=== PATIENT | female | born 1990 | race Caucasian/White ===

== ENCOUNTER 2018-08-06 22:52 | Emergency (ER) | payer SELFPAY ==
[~2018-08-06] VITALS: Ht 160 cm; Wt 117.9 kg
[2018-08-06 22:56] VITALS: BP 146/86
[2018-08-07] MEDS ORDERED: HYDROcodone/APAP 5/325 MG 1 TAB TAB PO ONE (00:10)
[2018-08-07 01:19] VITALS: BP 146/86
== END 2018-08-07 00:43 | disposition home or self-care (01) ==
LOC: MED 22:52
DX: N83.202 Unspecified ovarian cyst, left side (principal); N39.0 Urinary tract infection, site not specified
CPT/HCPCS: 81002; 81025; 99283

== ENCOUNTER 2018-09-13 20:50 | Emergency (ER) | payer SELFPAY ==
[~2018-09-13] VITALS: Ht 160 cm; Wt 126.6 kg
[2018-09-13 21:10] VITALS: BP 159/76
--- NOTE | 2018-09-13 21:12 | NUR ---
to lobby a/w bed, ambulatory, vss ermd noted
--- NOTE | 2018-09-13 21:47 | NUR ---
PT PRESENTS TO ED WITH SUPRAPUBIC PAIN / X2 DAYS. PT DENIES VAGINAL DISCHARGE OR PAIN WITH URINATION. PAIN IS CONSTANT AND UNBARABLE. VSS. POSITIONED IN BED FOR COMFORT. A&OX4. ER MD AWARE. CONTINUE TO MONITOR.
--- NOTE | 2018-09-13 21:47 | NUR ---
PT TAKEN TO BED 6
[2018-09-13] MEDS ORDERED: ONDANSETRON 4 MG/2 ML VIAL IVP ONE (21:55)
[2018-09-13] MEDS ORDERED: NACL 0.9% 1,000 ML IV ONE (21:55)
[2018-09-13] MEDS ORDERED: KETOROLAC 30 MG/ML VIAL IVP ONE (21:55)
[2018-09-13 22:15] LABS: BASOPHILS # (AUTO) 0.1 K/uL (0.00-0.22); BASOPHILS % (AUTO) 0.5 % (0.0-2.0); EOSINOPHILS # (AUTO) 0.1 K/uL (0-0.4); EOSINOPHILS % (AUTO) 0.6 % (0.0-4.0); HEMATOCRIT 40.2 % (36-48); HEMOGLOBIN 12.7 g/dL (12.0-16.0); LYMPHOCYTES # (AUTO) 1.3 K/uL (2.5-16.5); LYMPHOCYTES % (AUTO) 11.9 % (20.5-51.1); MEAN CORPUSCULAR HEMOGLOBIN 25 pg (27-31); MEAN CORPUSCULAR HGB CONC 32 g/dL (33-37); MEAN CORPUSCULAR VOLUME 77.8 fL (80-94); MONOCYTES # (AUTO) 0.5 K/uL (0.8-1.0); MONOCYTES % (AUTO) 4.4 % (1.7-9.3); NEUTROPHILS # (AUTO) 9.2 K/uL (1.8-7.7); NEUTROPHILS % (AUTO) 82.6 % (42.2-75.2); PLATELET COUNT (AUTO) 235 K/uL (140-450); RED BLOOD CELL COUNT(AUTO) 5.17 MIL/uL (4.20-5.40); RED CELL DISTRIBUTION WIDTH 15.5 % (11.6-13.7); WHITE BLOOD COUNT (AUTO) 11.2 K/uL (4.8-10.8)
[2018-09-13 22:25] LABS: CARBON DIOXIDE 25.8 mmol/L (21-32); CREATININE 0.7 mg/dL (0.6-1.3); POTASSIUM 3.8 mmol/L (3.5-5.1)
[2018-09-13 22:31] LABS: ALBUMIN 3.9 g/dL (3.4-5.0); TOTAL BILIRUBIN 0.3 mg/dL (0.0-1.0)
--- NOTE | 2018-09-13 22:33 | NUR ---
Dr. Whitfield evaluating patient at bedside.
[2018-09-14 00:17] VITALS: BP 159/76
--- NOTE | 2018-09-14 00:17 | NUR ---
Patient discharged with v/s stable. Written and verbal after care instructions given and explained. Patient alert, oriented and verbalized understanding of instructions. Ambulatory with steady gait. All questions addressed prior to discharge. ID band removed. Patient advised to follow up with PMD. Rx of Tramadol and Motrin given. Patient educated on indication of medication including possible reaction and side effects. Opportunity to ask questions provided and answered.
== END 2018-09-14 00:17 | disposition home or self-care (01) ==
LOC: MED 20:50
DX: R10.30 Lower abdominal pain, unspecified (principal); R42 Dizziness and giddiness
CPT/HCPCS: 36415; 80053; 81002; 81025; 83690; 85025; 96361; 96374; 96375; 99283; J1885; J2405; J7030

== ENCOUNTER 2018-12-12 15:52 | Emergency (ER) | payer SELFPAY ==
[~2018-12-12] VITALS: Ht 160 cm; Wt 117.9 kg
[2018-12-12 16:21] VITALS: BP 14/101
--- NOTE | 2018-12-12 16:27 | NUR ---
PATIENT PRESENTS TO ED WITH HAS BEEN IN REHAB FOR NORCO ABUSE C/O ANXIETY, UNEASY AROUND OTHER PEOPLE--FLIGHT OF IDEAS PT ADDS SHE HAS TAKEN TEAS . DENIES N/V/D; SKIN IS PINK/WARM/DRY; AAOX4 WITH EVEN AND STEADY GAIT; LUNGS CLEAR BL; HR EVEN AND REGULAR; PT DENIES ANY FEVER, CP, SOB, OR COUGH AT THIS TIME; PATIENT STATES PAIN OF 0/10 AT THIS TIME; VSS; PATIENT POSITIONED FOR COMFORT; HOB ELEVATED; BEDRAILS UP X2; BED DOWN. ER MD MADE AWARE OF PT STATUS.
--- NOTE | 2018-12-12 17:00 | NUR ---
C/O ANXIETY ----ADDS HAS BEEN IN REHAB FOR NORCO ABUSE ADMITS FEELING VERY ANXIOUS AROUND PEOPLE NOW AND "UNEASY FEELING". PT DENIES N/V/D; SKIN IS INTACT, PINK/WARM/DRY; AAOX4, PERRL, WITH EVEN AND STEADY GAIT; LUNGS CLEAR BL, BREATHING UNLABORED; HR EVEN AND REGULAR, BL PERIPHERAL PULSES PRESENT; BS ACTIVE X4, NO TENDERNESS TO PALPATION. PT DENIES ANY FEVER, CP, SOB, OR COUGH AT THIS TIME; PT STATES 0/10 PAIN AT THIS TIME; VSS; PATIENT POSITIONED FOR COMFORT; HOB ELEVATED; BEDRAILS UP X2; BED DOWN.
[2018-12-12 17:21] VITALS: BP 132/99
== END 2018-12-12 17:10 | disposition home or self-care (01) ==
LOC: MED 15:52
DX: F41.9 Anxiety disorder, unspecified (principal)
CPT/HCPCS: 99283

== ENCOUNTER 2019-05-20 15:25 | Emergency (ER) | payer MEDICAID ==
[~2019-05-20] VITALS: Ht 162.6 cm; Wt 119.7 kg
[2019-05-20 15:44] VITALS: BP 132/98
--- NOTE | 2019-05-20 16:00 | NUR ---
RT SIDE TOOTH ACHE X2 WEEKS W/ WELCH AND COUGH. PAIN 03/05. TOOK ADVIL OTC APPROX 3 HOURS AGO. PATIENT STATES SHE HAS BEEN WAITING FOR HER INSURANCE TO GET IN CONTACT WITH HER DENTIST. IS CONCERNED SHE HAS AN INFECTION.
--- NOTE | 2019-05-20 16:45 | NUR ---
DR XAVIER AT BEDSIDE
[2019-05-20 16:58] VITALS: BP 130/95
--- NOTE | 2019-05-20 16:58 | NUR ---
Patient discharged with v/s stable. Written and verbal after care instructions given and explained. Patient alert, oriented and verbalized understanding of instructions. Ambulatory with steady gait. All questions addressed prior to discharge. ID band removed. Patient advised to follow up with [facility]. Rx of IBUPROFEN AND AMOXICILLIN given. Patient educated on indication of medication including possible reaction and side effects. Opportunity to ask questions provided and answered.
== END 2019-05-20 16:58 | disposition home or self-care (01) ==
LOC: MED 15:25
DX: K08.89 Other specified disorders of teeth and supporting structures (principal)
CPT/HCPCS: 99283

== ENCOUNTER 2021-01-01 21:34 | Emergency (ER) | payer MEDICAID ==
[~2021-01-01] VITALS: Ht 160 cm; Wt 132.9 kg
[2021-01-01 21:47] VITALS: BP 149/86
--- NOTE | 2021-01-01 21:47 | NUR ---
TO BED AMBULATORY
--- NOTE | 2021-01-01 21:50 | NUR ---
30 Y/O FEMALE CAME TO THE ED FOR LEFT FLANK PAIN. PT STATES THAT SHE IS LIVING WITH ONLY 1 KIDNEY. PT IS NAUSEOUS, AND HAS VOMITTED X7 TODAY. SKIN IS PINK/WARM/DRY; AAOX4 WITH EVEN AND STEADY GAIT; LUNGS CLEAR BL; HR EVEN AND REGULAR; PT DENIES ANY FEVER, CP, SOB, OR COUGH AT THIS TIME; PATIENT STATES PAIN OF 0/10 AT THIS TIME; VSS; PATIENT POSITIONED FOR COMFORT; HOB ELEVATED; BEDRAILS UP X2; BED DOWN. ER MD MADE AWARE OF PT STATUS. PMH: UTI SURGICAL HX: KIDNEY REMOVAL [facility]
--- NOTE | 2021-01-01 23:13 | NUR ---
DR LIANG AT BEDSIDE EXAMINING PT
[2021-01-01] MEDS ORDERED: MORPHINE SULFATE 2 MG/ML SYR IVP ONE (23:45)
[2021-01-01] MEDS ORDERED: ONDANSETRON 4 MG/2 ML VIAL IVP ONE (23:45)
[2021-01-01] MEDS ORDERED: NACL 0.9% 1,000 ML IV ONE (23:45)
[2021-01-01 23:58] LABS: APPEARANCE,URINE CLEAR (CLEAR); BILIRUBIN,URINE NEGATIVE (NEGATIVE); BLOOD, URINE 2+ (NEGATIVE); COLOR,URINE YELLOW (YELLOW); LEUKOCYTE ESTERASE ,URINE 2+ (NEGATIVE); NITRITE, URINE NEGATIVE (NEGATIVE); UGLUCOSE NEGATIVE (NEGATIVE)
[2021-01-02 00:15] LABS: ALBUMIN 3.1 g/dL (3.4-5.0); ANION GAP 13.1 (8-16); POTASSIUM 4.1 mmol/L (3.5-5.1); TOTAL BILIRUBIN 0.3 mg/dL (0.0-1.0)
--- NOTE | 2021-01-02 00:18 | NUR ---
PT RETURN FROM CT
[2021-01-02 00:23] LABS: BASOPHILS % (AUTO) 0.2 % (0.0-2.0); EOSINOPHILS # (AUTO) 0.1 K/uL (0-0.4); EOSINOPHILS % (AUTO) 0.7 % (0.0-4.0); HEMATOCRIT 35.4 % (36-48); HEMOGLOBIN 11.7 g/dL (12.0-16.0); LYMPHOCYTES # (AUTO) 1.3 K/uL (2.5-16.5); LYMPHOCYTES % (AUTO) 12.3 % (20.5-51.1); MEAN CORPUSCULAR HEMOGLOBIN 28 pg (27-31); MEAN CORPUSCULAR HGB CONC 33 g/dL (33-37); MEAN CORPUSCULAR VOLUME 85.6 fL (80-94); MONOCYTES # (AUTO) 1.3 K/uL (0.8-1.0); NEUTROPHILS # (AUTO) 8.2 K/uL (1.8-7.7); NEUTROPHILS % (AUTO) 74.8 % (42.2-75.2); PLATELET COUNT (AUTO) 166 K/uL (140-450); RED BLOOD CELL COUNT(AUTO) 4.13 MIL/uL (4.20-5.40); RED CELL DISTRIBUTION WIDTH 14.1 % (11.6-13.7); WHITE BLOOD COUNT (AUTO) 10.9 K/uL (4.8-10.8)
[2021-01-02 00:24] LABS: WBC,URINE 20-60 /HPF (0-5)
[2021-01-02 00:25] LABS: URINE AMORPHOUS URATE 1+ /HPF (None Seen)
[2021-01-02] MEDS ORDERED: MORPHINE SULFATE 2 MG/ML SYR IVP ONE ×2 (01:20→02:15)
[2021-01-02] MEDS ORDERED: cefTRIAXone 1,000 MG VIAL ONE (01:37)
[2021-01-02] MEDS ORDERED: ACET-8386 PO (02:05)
--- NOTE | 2021-01-02 02:58 | NUR ---
Patient discharged with v/s stable. Written and verbal after care instructions given and explained. Patient verbalized understanding. Ambulatory with steady gait. All questions addressed prior to discharge. Advised to follow up with PMD.
[2021-01-02 03:03] VITALS: BP 149/86
[2021-01-03] MEDS ORDERED: CYCL-654 PO (11:24)
[2021-01-03] MEDS ORDERED: CYCL5TAB PO (11:35)
--- NOTE | 2021-01-05 19:45 | NUR ---
LATE ENTRY- 0.9% NS BOLUS DISCONTINUED AT 0115 AND ROCEPHIN DISCONTINUED AT 0230
== END 2021-01-02 02:58 | disposition home or self-care (01) ==
LOC: MED 21:34
DX: N10 Acute pyelonephritis (principal); R11.2 Nausea with vomiting, unspecified
CPT/HCPCS: 36415; 74176; 80053; 81001; 81025; 84703; 85025; 87086; 96361; 96365; 96375; 96376; 99284; J0696; J2270; J2405; J7030

== ENCOUNTER 2021-01-03 08:49 | Emergency (ER) | payer MEDICAID ==
[~2021-01-03] VITALS: Ht 165.1 cm; Wt 131.5 kg
[2021-01-03 08:51] VITALS: BP 145/107
--- NOTE | 2021-01-03 08:59 | NUR ---
PT AMBULATED TO BATHROOM, STEADY GAIT.
[2021-01-03] MEDS ORDERED: NACL 0.9% 1,000 ML IV ONE (09:20)
--- NOTE | 2021-01-03 09:21 | NUR ---
30 Y/O F BIB SELF FROM HOME, PATIENT PRESENTS TO ED WITH ABD PAIN AND PAINFUL URINATION THAT STARTED 5 DAYS AGO 12/29/20 . PT STATES SHE HAS HESITENCY AND URGENCY WHEN URINATING, FEELS SHE IS UNABLE TO FULLY EMPTY BLADDER, BURNING SENSATION WITH ABD PAIN 10/10. DENIES N/V/D; SKIN IS PINK/WARM/DRY; AAOX4 WITH EVEN AND STEADY GAIT; LUNGS CLEAR BL; HR EVEN AND REGULAR; PT DENIES ANY CP, SOB, OR COUGH AT THIS TIME; PATIENT STATES PAIN OF 10/10 AT THIS TIME, ONLY DURING URINATION IN ABD AREA; VSS; PATIENT POSITIONED FOR COMFORT; HOB ELEVATED; BEDRAILS UP X2; BED DOWN. ER MD MADE AWARE OF PT STATUS. UPON PALPATION, ABD IS ROUND AND SOFT, NON TENDER IN ALL QUADRANTS. STATES SHE HAS BEEN HAVING FEVERS AND BODY ACHES. PMH: R KIDNEY REMOVAL AT 6 MO, NON FUNCTIONING MEDS: LAST DOSE OF IBUPROFEN (0700 800MG) ALLERGY: NONE
[2021-01-03] MEDS ORDERED: ONDANSETRON 4 MG/2 ML VIAL IVP ONE (09:25)
[2021-01-03] MEDS ORDERED: HYDROcodone/APAP 5/325 MG 1 TAB TAB PO ONE (09:25)
[2021-01-03] MEDS ORDERED: ACETAMINOPHEN EXTRA STRENGTH 500 MG TAB PO ONE (09:25)
--- NOTE | 2021-01-03 09:38 | NUR ---
DAINA PHLEB PICKED UP URINE AND LABS DRAWN THROUGH IV
[2021-01-03 09:41] LABS: HEMATOCRIT 34.6 % (36-48); HEMOGLOBIN 11.4 g/dL (12.0-16.0); MEAN CORPUSCULAR HEMOGLOBIN 28 pg (27-31); MEAN CORPUSCULAR HGB CONC 33 g/dL (33-37); MEAN CORPUSCULAR VOLUME 84.9 fL (80-94); PLATELET COUNT (AUTO) 187 K/uL (140-450); RED BLOOD CELL COUNT(AUTO) 4.08 MIL/uL (4.20-5.40); RED CELL DISTRIBUTION WIDTH 14.2 % (11.6-13.7); WHITE BLOOD COUNT (AUTO) 9.2 K/uL (4.8-10.8)
--- NOTE | 2021-01-03 09:59 | NUR ---
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
[2021-01-03 10:00] LABS: ALBUMIN 2.9 g/dL (3.4-5.0); ANION GAP 13.1 (8-16); CARBON DIOXIDE 23.1 mmol/L (21-32); CREATININE 0.9 mg/dL (0.6-1.3); POTASSIUM 4.2 mmol/L (3.5-5.1); TOTAL BILIRUBIN 0.3 mg/dL (0.0-1.0)
[2021-01-03 10:44] LABS: APPEARANCE,URINE CLEAR (CLEAR); BILIRUBIN,URINE NEGATIVE (NEGATIVE); BLOOD, URINE 2+ (NEGATIVE); COLOR,URINE YELLOW (YELLOW); LEUKOCYTE ESTERASE ,URINE TRACE (NEGATIVE); NITRITE, URINE NEGATIVE (NEGATIVE); UGLUCOSE NEGATIVE (NEGATIVE)
[2021-01-03 10:56] LABS: EOSINOPHILS % (MANUAL) 1 % (0-4); LYMPHOCYTES % (MANUAL) 17 % (20-46); MONOCYTES % (MANUAL) 10 % (5-12)
[2021-01-03 11:04] LABS: RBC,URINE 0-5 /HPF (0-5)
[2021-01-03] MEDS ORDERED: MORPHINE SULFATE 2 MG/ML SYR IVP ONE (11:05)
[2021-01-03] MEDS ORDERED: CYCL-654 PO (11:24)
[2021-01-03] MEDS ORDERED: CYCL5TAB PO (11:35)
[2021-01-03 11:37] VITALS: BP 145/107
--- NOTE | 2021-01-03 11:37 | NUR ---
Patient discharged with v/s stable. Written and verbal after care instructions given and explained. Patient alert, oriented and verbalized understanding of instructions. Ambulatory with steady gait. All questions addressed prior to discharge. ID band removed. Patient advised to follow up with PMD. Rx of FLEXERIL given. Patient educated on indication of medication including possible reaction and side effects. Opportunity to ask questions provided and answered.
== END 2021-01-03 11:37 | disposition home or self-care (01) ==
LOC: MED 08:49
DX: N12 Tubulo-interstitial nephritis, not specified as acute or chronic (principal)
CPT/HCPCS: 36415; 80053; 81001; 81025; 83605; 85025; 87040; 87086; 96361; 96374; 96375; 99284; J2270; J2405; J7030

== ENCOUNTER 2021-08-05 07:53 | Emergency (ER) | payer MEDICAID ==
[~2021-08-05] VITALS: Ht 160 cm; Wt 130.6 kg
[~2021-08-05 07:53] MED LIST: CYCL-654 PO; CYCL5TAB PO
[2021-08-05 07:58] VITALS: BP 150/107
--- NOTE | 2021-08-05 08:00 | NUR ---
Patient ambulated to bed 07 with steady/even gait.
[2021-08-05] MEDS ORDERED: KETOROLAC 60 MG/2 ML VIAL IM ONE (08:10)
--- NOTE | 2021-08-05 08:20 | NUR ---
31/F BIB SELF WITH C/O LOWER ABDOMINAL PAIN RADIATING TO HER LOW BACK SINCE YESTERDAY. STATES HX OF OVARIAN CYSTS WHICH CAUSES BAD MENSTRUAL CRAMPS, STATING THIS MONTH THE PAIN IS WORSE. PT STATES 10/10, CRAMPING/STABBING/CONSTANT, NON-RADIATING PAIN. PT ALSO C/O VOMITING SINCE YESTERDAY "DUE TO PAIN." REPORTS 8 EPISODES OF VOMITING SINCE YESTERDAY "GREEN/LIQUID." STATES DECREASED APPETITE D/T VOMITING. REPORTS ADVIL AT ~0700 TODAY WITHOUT RELIEF TO PAIN. DENIES CP, SOB, FEVER, CHILLS. UA COLLECTED. ABD SOFT/ROUND/TENDER. BED LOCKED IN LOWEST POSITION, SIDE RAILS X 1, CALL LIGHT IN REACH. MEDHX: OVARIAN CYSTS ALLERGIES: DENIES
--- NOTE | 2021-08-05 08:36 | NUR ---
DR GRACIA AT BEDSIDE EVALUATING PT
[2021-08-05] MEDS ORDERED: IBUP-2213 PO (08:45)
--- NOTE | 2021-08-05 09:05 | NUR ---
Patient states pain 10/10, requesting stronger pain medication prior to discharge. Patient states "they normally give me something stronger in the past. I don't know why you didn't start with something stronger because the shot didn't work." Dr. Blanco made aware
[2021-08-05] MEDS ORDERED: MORPHINE SULFATE 4 MG/ML SYR ONE (09:07)
--- NOTE | 2021-08-05 09:08 | NUR ---
Patient contacted family and reports she has a ride home. States ETA for transportation "a few minutes."
[2021-08-05] MEDS ORDERED: MORPHINE SULFATE 4 MG/ML SYR IM ONE (09:10)
--- NOTE | 2021-08-05 09:25 | NUR ---
Pt states + relief to pain; 3/10 at this time. States ride is on her way
--- NOTE | 2021-08-05 09:31 | NUR ---
ETA for ride 4 minutes. + relief 2/10 pain
--- NOTE | 2021-08-05 09:37 | NUR ---
Pt states transportation here
== END 2021-08-05 09:37 | disposition home or self-care (01) ==
LOC: MED 07:53
DX: R10.30 Lower abdominal pain, unspecified (principal); Z87.448 Personal history of other diseases of urinary system
CPT/HCPCS: 81002; 81025; 96372; 99284; J1885; J2270

== ENCOUNTER 2021-12-15 10:32 | Emergency (ER) | payer MEDICAID ==
[~2021-12-15] VITALS: Ht 165.1 cm; Wt 127.0 kg
[~2021-12-15 10:32] MED LIST changes: +IBUP-2213 PO
[2021-12-15 10:35] VITALS: BP 136/96
--- NOTE | 2021-12-15 11:28 | NUR ---
31 Y/O FEMALE C/O GENERALIZED BODY PAIN, HEAVINESS WITH PRESSURE ON THE CHEST 03/05. WENT TO URGENT CARE YESTERDAY AND WAS PRESCRIBED CEFNIDIR 300MG BID PO FOR UTI. STATED THEY HAD SWELLING IN THE HANDS YESTERDAY, WITH 1X EPISODE OF N/V YESTERDAY. NO N/V AND SWELLING NOTED AT THIS MOMENT. RESIDENT IS A/OX4, RESPIRATIONS EVEN AND UNLABORED. EXTREMITIES WARM TO TOUCH. PMH: RIGHT KIDNEY REMOVAL FOR NON-FUNCTIONING KIDNEY NKDA
[2021-12-15 12:27] LABS: BASOPHILS % (AUTO) 0.3 % (0.0-2.0); EOSINOPHILS # (AUTO) 0.2 K/uL (0-0.4); EOSINOPHILS % (AUTO) 3.4 % (0.0-4.0); HEMATOCRIT 38.8 % (36-48); LYMPHOCYTES # (AUTO) 1.3 K/uL (2.5-16.5); LYMPHOCYTES % (AUTO) 22.1 % (20.5-51.1); MEAN CORPUSCULAR HEMOGLOBIN 28 pg (27-31); MEAN CORPUSCULAR HGB CONC 33 g/dL (33-37); MEAN CORPUSCULAR VOLUME 84.6 fL (80-94); MONOCYTES # (AUTO) 0.5 K/uL (0.8-1.0); MONOCYTES % (AUTO) 8.1 % (1.7-9.3); NEUTROPHILS # (AUTO) 3.8 K/uL (1.8-7.7); NEUTROPHILS % (AUTO) 66.1 % (42.2-75.2); PLATELET COUNT (AUTO) 177 K/uL (140-450); RED BLOOD CELL COUNT(AUTO) 4.58 MIL/uL (4.20-5.40); RED CELL DISTRIBUTION WIDTH 13.8 % (11.6-13.7); WHITE BLOOD COUNT (AUTO) 5.7 K/uL (4.8-10.8)
[2021-12-15 12:29] LABS: APPEARANCE,URINE CLEAR (CLEAR); BILIRUBIN,URINE 1+ (NEGATIVE); BLOOD, URINE NEGATIVE (NEGATIVE); COLOR,URINE YELLOW (YELLOW); LEUKOCYTE ESTERASE ,URINE 1+ (NEGATIVE); NITRITE, URINE NEGATIVE (NEGATIVE); UGLUCOSE NEGATIVE (NEGATIVE)
[2021-12-15 12:33] LABS: ALBUMIN 3.1 g/dL (3.4-5.0); ANION GAP 10.3 (8-16); CARBON DIOXIDE 27.4 mmol/L (21-32); CREATININE 0.7 mg/dL (0.6-1.3); POTASSIUM 3.7 mmol/L (3.5-5.1)
[2021-12-15 12:48] LABS: CALCIUM OXALATE CRYSTALS,UR None Seen /HPF (None Seen); COARSE GRANULAR CASTS,URINE None Seen /LPF (None Seen); FINE GRANULAR CASTS,URINE None Seen /LPF (None Seen); HYALINE CASTS, URINE None Seen /LPF (None Seen); OTHER CRYSTALS,URINE None Seen /HPF (None Seen); RBC,URINE 0-5 /HPF (0-5); RED BLOOD CELL CASTS,URINE None Seen /LPF (None Seen); TRICHOMONAS,URINE None Seen /HPF (None Seen); TRIPLE PHOSPHATE CRYSTAL,UR None Seen /HPF (None Seen); URIC ACID CRYSTALS,URINE None Seen /HPF (None Seen); URINE AMORPHOUS URATE None Seen /HPF (None Seen); WAXY CASTS,URINE None Seen /LPF (None Seen); YEAST,URINE None Seen /HPF (None Seen)
[2021-12-15 12:49] LABS: OTHER CASTS, URINE None Seen /LPF (None Seen)
--- NOTE | 2021-12-15 13:14 | NUR ---
Patient discharged with v/s stable. Written and verbal after care instructions ABOUT MUSCLE PAIN AND UTI given and explained. Patient verbalized understanding. Ambulatory with steady gait. All questions addressed prior to discharge. Advised to follow up with PMD.
[2021-12-15 13:22] VITALS: BP 133/89
== END 2021-12-15 13:14 | disposition home or self-care (01) ==
LOC: MED 10:32
DX: N39.0 Urinary tract infection, site not specified (principal); M79.10 Myalgia, unspecified site; R07.89 Other chest pain; F17.210 Nicotine dependence, cigarettes, uncomplicated; Z71.6 Tobacco abuse counseling
CPT/HCPCS: 36415; 80053; 81001; 81025; 85025; 87086; 93005; 99284

== ENCOUNTER 2022-03-07 06:54 | Emergency (ER) | payer MEDICAID ==
[~2022-03-07] VITALS: Ht 160 cm; Wt 129.3 kg
[2022-03-07 06:58] VITALS: BP 162/113
--- NOTE | 2022-03-07 07:05 | NUR ---
Patient ambulated to bed 12.
[2022-03-07] MEDS ORDERED: KETOROLAC 60 MG/2 ML VIAL IM ONE (07:10)
--- NOTE | 2022-03-07 07:12 | NUR ---
Dr. Blanco examining patient.
[2022-03-07] MEDS ORDERED: ONDA8TAB87 PO ×2 (07:25→07:31)
[2022-03-07] MEDS ORDERED: ONDANSETRON 4 MG ODT PO ONE (07:25)
[2022-03-07] MEDS ORDERED: IBUP-2213 PO ×2 (07:25→07:31)
[2022-03-07] MEDS ORDERED: CIPR500T4 PO ×2 (07:27→07:31)
--- NOTE | 2022-03-07 07:32 | NUR ---
PT C/O ABDOMINAL PAIN HX OF OVARIAN CYSTS X2 DAYS. MEDICATED PER ORDER.
--- NOTE | 2022-03-07 07:36 | NUR ---
Patient discharged with v/s stable. Written and verbal after care instructions given and explained. Patient alert, oriented and verbalized understanding of instructions. Ambulatory with steady gait. All questions addressed prior to discharge. ID band removed. Patient advised to follow up with PMD. Rx of CIPRO, MOTRIN, ZOFRAN given. Patient educated on indication of medication including possible reaction and side effects. Opportunity to ask questions provided and answered.
[2022-03-07] MEDS ORDERED: MORPHINE SULFATE 4 MG/ML SYR IM ONE (08:00)
== END 2022-03-07 07:37 | disposition home or self-care (01) ==
LOC: MED 06:54
DX: R10.30 Lower abdominal pain, unspecified (principal); N39.0 Urinary tract infection, site not specified; Z98.890 Other specified postprocedural states
CPT/HCPCS: 81002; 81025; 96372; 99284; J1885; J2270; Q0162

== ENCOUNTER 2022-03-17 17:24 | Emergency (ER) | payer MEDICAID, OTHER ==
[~2022-03-17] VITALS: Ht 157.5 cm; Wt 129.3 kg
[~2022-03-17 17:24] MED LIST changes: +CIPR500T4 PO; +ONDA8TAB87 PO
[2022-03-17 17:29] VITALS: BP 166/112
--- NOTE | 2022-03-17 17:53 | NUR ---
DR SHAVER AT BEDSIDE.
--- NOTE | 2022-03-17 17:55 | NUR ---
31 Y/O BIB SELF C/O CHEST PRESSURE, TINGLING IN BOTH ARMS, FLUTTER STARTED LATE AFTERNOON. PT STATED " I FEEL LIKE PASSING OUT". PT ALSO C/O NAUSEA THIA MORNING. HX OF SMOKING. NKA OR PMH
--- NOTE | 2022-03-17 18:05 | NUR ---
LAB AT BEDSIDE.
--- NOTE | 2022-03-17 18:10 | NUR ---
X-RAY AT BEDSIDE.
[2022-03-17 18:27] LABS: BASOPHILS # (AUTO) 0.1 K/uL (0.00-0.22); BASOPHILS % (AUTO) 0.8 % (0.0-2.0); EOSINOPHILS # (AUTO) 0.2 K/uL (0-0.4); EOSINOPHILS % (AUTO) 2.5 % (0.0-4.0); HEMATOCRIT 39.3 % (36-48); LYMPHOCYTES # (AUTO) 2.3 K/uL (2.5-16.5); LYMPHOCYTES % (AUTO) 26.6 % (20.5-51.1); MEAN CORPUSCULAR HEMOGLOBIN 28 pg (27-31); MEAN CORPUSCULAR HGB CONC 33 g/dL (33-37); MEAN CORPUSCULAR VOLUME 83.5 fL (80-94); MONOCYTES # (AUTO) 0.5 K/uL (0.8-1.0); MONOCYTES % (AUTO) 5.9 % (1.7-9.3); NEUTROPHILS # (AUTO) 5.5 K/uL (1.8-7.7); NEUTROPHILS % (AUTO) 64.2 % (42.2-75.2); PLATELET COUNT (AUTO) 208 K/uL (140-450); RED BLOOD CELL COUNT(AUTO) 4.71 MIL/uL (4.20-5.40); RED CELL DISTRIBUTION WIDTH 14.9 % (11.6-13.7); WHITE BLOOD COUNT (AUTO) 8.5 K/uL (4.8-10.8)
[2022-03-17 18:46] LABS: ALBUMIN 3.4 g/dL (3.4-5.0); ANION GAP 11.2 (8-16); ASPARTATE AMINOTRANSFERASE 74 U/L (15-37); CARBON DIOXIDE 25.6 mmol/L (21-32); CHLORIDE 103 mmol/L (98-107); CREATININE 0.8 mg/dL (0.6-1.3); GFR ARICAN-AMERICAN 106 mL/min (>90); GLUCOSE 87 mg/dL (74-106); POTASSIUM 3.8 mmol/L (3.5-5.1); SODIUM SERUM 136 mmol/L (136-145); TOTAL BILIRUBIN 0.3 mg/dL (0.0-1.0); UREA NITROGEN, BLOOD 11 mg/dL (7-18)
--- NOTE | 2022-03-17 19:22 | NUR ---
GAVE REPORT TO NIRMAL REID.
--- NOTE | 2022-03-17 19:25 | NUR ---
PT IS AWAKE AND ALERT. PT STATES SHE FEELS BETTER THAN BEFORE. ALL NEEDS MET AT THIS TIME.
[2022-03-17 19:50] VITALS: BP 153/91
== END 2022-03-17 19:50 | disposition home or self-care (01) ==
LOC: MED 17:24
DX: R07.9 Chest pain, unspecified (principal); F41.9 Anxiety disorder, unspecified; R05.9 Cough, unspecified; R09.81 Nasal congestion; F17.210 Nicotine dependence, cigarettes, uncomplicated
CPT/HCPCS: 36415; 71045; 80053; 84484; 84702; 85025; 85379; 93005; 99285

== ENCOUNTER 2022-09-08 17:41 | Emergency (ER) | payer MEDICAID, OTHER ==
[~2022-09-08] VITALS: Ht 160 cm; Wt 127.0 kg
[2022-09-08 17:52] VITALS: BP 165/117
[2022-09-08 18:28] LABS: BASOPHILS # (AUTO) 0.1 K/uL (0.00-0.22); BASOPHILS % (AUTO) 0.5 % (0.0-2.0); EOSINOPHILS % (AUTO) 0.4 % (0.0-4.0); HEMATOCRIT 40.6 % (36-48); HEMOGLOBIN 13.6 g/dL (12.0-16.0); LYMPHOCYTES # (AUTO) 1.6 K/uL (2.5-16.5); MEAN CORPUSCULAR HEMOGLOBIN 29 pg (27-31); MEAN CORPUSCULAR HGB CONC 34 g/dL (33-37); MEAN CORPUSCULAR VOLUME 85.8 fL (80-94); MONOCYTES # (AUTO) 0.4 K/uL (0.8-1.0); MONOCYTES % (AUTO) 3.4 % (1.7-9.3); NEUTROPHILS # (AUTO) 9.5 K/uL (1.8-7.7); NEUTROPHILS % (AUTO) 81.7 % (42.2-75.2); PLATELET COUNT (AUTO) 197 K/uL (140-450); RED BLOOD CELL COUNT(AUTO) 4.74 MIL/uL (4.20-5.40); RED CELL DISTRIBUTION WIDTH 13.5 % (11.6-13.7); WHITE BLOOD COUNT (AUTO) 11.7 K/uL (4.8-10.8)
[2022-09-08 18:53] LABS: ALBUMIN 3.8 g/dL (3.4-5.0); ANION GAP 15.5 (8-16); ASPARTATE AMINOTRANSFERASE 54 U/L (15-37); CARBON DIOXIDE 24.2 mmol/L (21-32); CHLORIDE 100 mmol/L (98-107); CREATININE 0.8 mg/dL (0.6-1.3); GFR ARICAN-AMERICAN 106 mL/min (>90); GLUCOSE 91 mg/dL (74-106); POTASSIUM 3.7 mmol/L (3.5-5.1); SODIUM SERUM 136 mmol/L (136-145); TOTAL BILIRUBIN 0.8 mg/dL (0.0-1.0); UREA NITROGEN, BLOOD 12 mg/dL (7-18)
[2022-09-08 19:30] VITALS: BP 148/98
== END 2022-09-08 19:31 | disposition home or self-care (01) ==
LOC: MED 17:41
DX: R07.89 Other chest pain (principal); T43.615A Adverse effect of caffeine, initial encounter; R03.0 Elevated blood-pressure reading, without diagnosis of hypertension; Z79.899 Other long term (current) drug therapy; Z98.84 Bariatric surgery status; Y92.89 Other specified places as the place of occurrence of the external cause
CPT/HCPCS: 36415; 80053; 84484; 85025; 93005; 99284

== ENCOUNTER 2022-09-28 09:10 | Emergency (ER) | payer MEDICAID ==
[~2022-09-28] VITALS: Ht 160 cm; Wt 122.5 kg
[2022-09-28 09:14] VITALS: BP 179/106
--- NOTE | 2022-09-28 10:32 | NUR ---
PT AMBULATED TO BED 07
--- NOTE | 2022-09-28 10:32 | NUR ---
PT AMBULATED TO BED 7
--- NOTE | 2022-09-28 10:45 | NUR ---
32YO FEMALE PT C/O ACHING 8/10 ROGER KNEE PAIN X2DAYS. REPORTS SLIPPING AND FALLING ONTO KNEES WHILE DANCING. PAIN AT MOST ON MOVEMENT OR TOUCH. KNESS W/O VISIBLE INJURY. AMB W/ UNSTEADY GAIT. NOTES PREVIOUS INJURY ABOUT 5 YEARS AGO AND MILD CHORNIC KNEE PAIN. PT AAOX4, HOB POSITIONED PER COMFORT HX: DENIES NKA
[2022-09-28] MEDS ORDERED: IBUPROFEN 600 MG TAB PO ONE (11:05)
[2022-09-28 11:20] VITALS: BP 156/106
[2022-09-28] MEDS ORDERED: IBUP-2213 PO (12:48)
--- NOTE | 2022-09-28 12:48 | NUR ---
PT'S LEFT KNEE WRAPPED WITH 3" TORO WRAP. CMS WNL BEFORE AND AFTER.
--- NOTE | 2022-09-28 12:57 | NUR ---
Patient discharged with v/s stable. Written and verbal after care instructions FOR KNEE SPRAIN given and explained. Patient alert, oriented and verbalized understanding of instructions. Ambulatory with steady gait. All questions addressed prior to discharge. ID band removed. Patient advised to follow up with PMD. Rx of MOTRIN given. Opportunity to ask questions provided and answered.
--- NOTE | 2022-09-28 13:48 | NUR ---
The patient's care was reviewed and supervised by Catarina 04 ED, RN.
== END 2022-09-28 12:57 | disposition home or self-care (01) ==
LOC: MED 09:10
DX: S86.812A Strain of other muscle(s) and tendon(s) at lower leg level, left leg, initial encounter (principal); M25.561 Pain in right knee; I10 Essential (primary) hypertension; N18.9 Chronic kidney disease, unspecified; Z72.89 Other problems related to lifestyle; Z79.899 Other long term (current) drug therapy; X58.XXXA Exposure to other specified factors, initial encounter; Y93.89 Activity, other specified; Y92.89 Other specified places as the place of occurrence of the external cause; Y99.8 Other external cause status
CPT/HCPCS: 73560; 99283; Q0092

== ENCOUNTER 2022-10-04 09:00 | Emergency (ER) | payer MEDICAID ==
[~2022-10-04] VITALS: Ht 160 cm; Wt 125.6 kg
[2022-10-04 09:03] VITALS: BP 158/103
--- NOTE | 2022-10-04 09:55 | NUR ---
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 PATIENT STATED HAD CHEST PRESSURE ON AND OFF FOR THE PAST MONTH AND GOT WORRY THIS MORNING, DENIES NAUSEA/VOMITING, WILL CONTINUE TO MONITOR.
[2022-10-04 10:26] LABS: BASOPHILS # (AUTO) 0.1 K/uL (0.00-0.22); BASOPHILS % (AUTO) 0.9 % (0.0-2.0); EOSINOPHILS # (AUTO) 0.2 K/uL (0-0.4); EOSINOPHILS % (AUTO) 2.9 % (0.0-4.0); HEMATOCRIT 39.5 % (36-48); HEMOGLOBIN 13.5 g/dL (12.0-16.0); LYMPHOCYTES # (AUTO) 1.9 K/uL (2.5-16.5); LYMPHOCYTES % (AUTO) 25.4 % (20.5-51.1); MEAN CORPUSCULAR HEMOGLOBIN 29 pg (27-31); MEAN CORPUSCULAR HGB CONC 34 g/dL (33-37); MONOCYTES # (AUTO) 0.5 K/uL (0.8-1.0); MONOCYTES % (AUTO) 6.4 % (1.7-9.3); NEUTROPHILS # (AUTO) 4.8 K/uL (1.8-7.7); NEUTROPHILS % (AUTO) 64.4 % (42.2-75.2); PLATELET COUNT (AUTO) 215 K/uL (140-450); RED BLOOD CELL COUNT(AUTO) 4.59 MIL/uL (4.20-5.40); RED CELL DISTRIBUTION WIDTH 13.9 % (11.6-13.7); WHITE BLOOD COUNT (AUTO) 7.4 K/uL (4.8-10.8)
[2022-10-04 10:44] LABS: ALBUMIN 3.5 g/dL (3.4-5.0); ANION GAP 15.8 (8-16); ASPARTATE AMINOTRANSFERASE 61 U/L (15-37); CARBON DIOXIDE 25.9 mmol/L (21-32); CHLORIDE 102 mmol/L (98-107); CREATININE 0.9 mg/dL (0.6-1.3); GFR ARICAN-AMERICAN 92 mL/min (>90); GLUCOSE 101 mg/dL (74-106); POTASSIUM 3.7 mmol/L (3.5-5.1); SODIUM SERUM 140 mmol/L (136-145); TOTAL BILIRUBIN 0.3 mg/dL (0.0-1.0); UREA NITROGEN, BLOOD 14 mg/dL (7-18)
[2022-10-04] MEDS ORDERED: ATA25 PO (11:03)
--- NOTE | 2022-10-04 11:08 | NUR ---
ALL RESULT BACK, EDP REASSESS PATIENT AND D/C HOME WITH INSTRUCTION PATIENT VERBALIZES UNDERSTANDING AND LEFT ER IN GOOD STABLE CONDITION.
[2022-10-04 11:11] VITALS: BP 132/78
--- NOTE | 2022-10-04 11:14 | NUR ---
Patient discharged with v/s stable. Written and verbal after care instructions given and explained. Patient alert, oriented and verbalized understanding of instructions. Ambulatory with steady gait. All questions addressed prior to discharge. ID band removed. Patient advised to follow up with PMD. Rx of HYD given. Patient educated on indication of medication including possible reaction and side effects. Opportunity to ask questions provided and answered.
== END 2022-10-04 11:15 | disposition home or self-care (01) ==
LOC: MED 09:00
DX: R07.89 Other chest pain (principal); I10 Essential (primary) hypertension; F41.9 Anxiety disorder, unspecified; N18.9 Chronic kidney disease, unspecified; Z79.899 Other long term (current) drug therapy
CPT/HCPCS: 36415; 71045; 80053; 84484; 85025; 93005; 99285

== ENCOUNTER 2023-03-23 22:48 | Emergency (ER) | payer MEDICAID ==
[~2023-03-23] VITALS: Ht 160 cm; Wt 126.3 kg
[~2023-03-23 22:48] MED LIST changes: +ATA25 PO
[2023-03-23 23:05] VITALS: BP 151/90; PULSE 96; RESP 16; TEMP 98; O2SAT 96
--- NOTE | 2023-03-23 23:08 | NUR ---
to lobby a/w bed ambulatory
--- NOTE | 2023-03-24 00:20 | NUR ---
PT TAKEN TO BED 5
[2023-03-24 00:25] VITALS: O2SAT 96
--- NOTE | 2023-03-24 00:28 | NUR ---
pt resting on bed 5. A/Ox4. not in distress. on monitor
--- NOTE | 2023-03-24 00:37 | NUR ---
Dr. Coles examining patient.
[2023-03-24 00:38] LABS: APPEARANCE,URINE CLEAR (CLEAR); BILIRUBIN,URINE 1+ (NEGATIVE); BLOOD, URINE 3+ (NEGATIVE); COLOR,URINE YELLOW (YELLOW); LEUKOCYTE ESTERASE ,URINE 1+ (NEGATIVE); NITRITE, URINE POSITIVE (NEGATIVE); PH,URINE 5.5 (5.0-9.0); UGLUCOSE 1+ (NEGATIVE)
[2023-03-24 00:41] LABS: RBC,URINE TOO NUMEROUS TO COUN /HPF (0-5)
[2023-03-24] MEDS ORDERED: SULF-59 PO (00:45)
[2023-03-24] MEDS ORDERED: HYDROcodone/APAP 5/325 MG 1 TAB TAB PO ONE (00:45)
[2023-03-24] MEDS ORDERED: KETOROLAC 30 MG/ML VIAL IM ONE (00:45)
[2023-03-24] MEDS ORDERED: ACET-8905 PO (00:45)
[2023-03-24] MEDS ORDERED: IBUP-2213 PO (00:45)
[2023-03-24] MEDS ORDERED: ONDA-188 PO (00:49)
--- NOTE | 2023-03-24 01:09 | NUR ---
Patient discharged with v/s stable. Written and verbal after care instructions given and explained. Patient alert, oriented and verbalized understanding of instructions. Ambulatory with steady gait. All questions addressed prior to discharge. ID band removed. Patient advised to follow up with PMD. Rx of ibuprofen and bactrim given. Opportunity to ask questions provided and answered.
--- NOTE | 2023-03-24 01:10 | NUR ---
pt medicated and discharged. pt denied the norco medication, Dr. Coles notified.
== END 2023-03-24 01:09 | disposition home or self-care (01) ==
LOC: MED 22:48
DX: N94.6 Dysmenorrhea, unspecified (principal); N39.0 Urinary tract infection, site not specified; I10 Essential (primary) hypertension; N18.9 Chronic kidney disease, unspecified; Z79.899 Other long term (current) drug therapy
CPT/HCPCS: 81001; 81025; 87086; 96372; 99283; J1885

== ENCOUNTER 2023-05-10 10:19 | Emergency (ER) | payer MEDICAID ==
[~2023-05-10] VITALS: Ht 160 cm; Wt 121.6 kg
[~2023-05-10 10:19] MED LIST changes: +ONDA-188 PO; +SULF-59 PO
[2023-05-10 11:01] VITALS: BP 147/99; PULSE 72; RESP 20; TEMP 98.1; O2SAT 100
[2023-05-10 11:20] VITALS: O2SAT 100
[2023-05-10 11:52] LABS: FLU A ANTIGEN negative (NEGATIVE); FLU B ANTIGEN negative (NEGATIVE)
== END 2023-05-10 12:40 | disposition home or self-care (01) ==
LOC: MED 10:19
DX: A08.4 Viral intestinal infection, unspecified (principal); Z20.822 Contact with and (suspected) exposure to COVID-19; I12.9 Hypertensive chronic kidney disease with stage 1 through stage 4 chronic kidney disease, or unspecified chronic kidney disease; N18.9 Chronic kidney disease, unspecified; Z79.899 Other long term (current) drug therapy
CPT/HCPCS: 81002; 81025; 99283

== ENCOUNTER 2023-06-22 16:38 | Emergency (ER) | payer MEDICAID ==
[~2023-06-22] VITALS: Ht 160 cm; Wt 123.4 kg
[2023-06-22 16:43] VITALS: BP 168/117; PULSE 78; RESP 15; TEMP 98.4; O2SAT 99
[2023-06-22] MEDS ORDERED: NACL 0.9% 1,000 ML IV ONE (17:15)
[2023-06-22] MEDS ORDERED: ACETAMINOPHEN 325 MG TAB PO ONE (17:15)
[2023-06-22] MEDS ORDERED: METOCLOPRAMIDE 10 MG/2 ML INJ VIAL IVP ONE (17:15)
[2023-06-22] MEDS ORDERED: diphenhydrAMINE 50 MG/ML VIAL IVP ONE (17:15)
[2023-06-22 18:08] LABS: BASOPHILS # (AUTO) 0.1 K/uL (0.00-0.22); BASOPHILS % (AUTO) 0.7 % (0.0-2.0); EOSINOPHILS # (AUTO) 0.2 K/uL (0-0.4); EOSINOPHILS % (AUTO) 1.9 % (0.0-4.0); LYMPHOCYTES # (AUTO) 1.7 K/uL (2.5-16.5); LYMPHOCYTES % (AUTO) 21.6 % (20.5-51.1); MEAN CORPUSCULAR HEMOGLOBIN 30 pg (27-31); MEAN CORPUSCULAR HGB CONC 34 g/dL (33-37); MEAN CORPUSCULAR VOLUME 86.7 fL (80-94); MONOCYTES # (AUTO) 0.4 K/uL (0.8-1.0); MONOCYTES % (AUTO) 5.4 % (1.7-9.3); NEUTROPHILS # (AUTO) 5.6 K/uL (1.8-7.7); NEUTROPHILS % (AUTO) 70.4 % (42.2-75.2); PLATELET COUNT (AUTO) 210 K/uL (140-450); RED BLOOD CELL COUNT(AUTO) 4.38 MIL/uL (4.20-5.40); RED CELL DISTRIBUTION WIDTH 13.8 % (11.6-13.7)
[2023-06-22 18:31] LABS: ALBUMIN 3.6 g/dL (3.4-5.0); ANION GAP 11.4 (8-16); CALCIUM 9.4 mg/dL (8.5-10.1); CARBON DIOXIDE 24.3 mmol/L (21-32); CREATININE 0.8 mg/dL (0.6-1.3); POTASSIUM 3.7 mmol/L (3.5-5.1); TOTAL BILIRUBIN 0.6 mg/dL (0.0-1.0); TOTAL PROTEIN, SERUM 7.5 g/dL (6.4-8.2)
[2023-06-22] MEDS ORDERED: METOCLOPRAMIDE 10 MG/2 ML INJ VIAL ONE (18:47)
[2023-06-22] MEDS ORDERED: diphenhydrAMINE 50 MG/ML VIAL ONE (18:47)
[2023-06-22 18:52] VITALS: O2SAT 99
[2023-06-22] MEDS ORDERED: KETOROLAC 30 MG/ML VIAL IVP ONE (19:30)
[2023-06-22 20:38] VITALS: BP 157/76; PULSE 63; RESP 18; TEMP 97.1; O2SAT 97
== END 2023-06-22 20:38 | disposition home or self-care (01) ==
LOC: MED 16:38
DX: R51.9 Headache, unspecified (principal); I10 Essential (primary) hypertension; F17.200 Nicotine dependence, unspecified, uncomplicated; Z87.448 Personal history of other diseases of urinary system; Z98.890 Other specified postprocedural states; Z79.899 Other long term (current) drug therapy; Z79.2 Long term (current) use of antibiotics; Z79.1 Long term (current) use of non-steroidal anti-inflammatories (NSAID)
CPT/HCPCS: 36415; 70450; 70496; 80053; 81002; 81025; 85025; 96361; 96374; 96375; 99285; J1200; J1885; J2765; J7030; Q9967

== ENCOUNTER 2023-06-24 06:28 | Emergency (ER) | payer MEDICAID ==
[~2023-06-24] VITALS: Ht 162.6 cm; Wt 123.4 kg
[2023-06-24 06:30] VITALS: BP 154/90; PULSE 87; RESP 16; TEMP 97.7; O2SAT 99
[2023-06-24 07:17] LABS: BASOPHILS # (AUTO) 0.1 K/uL (0.00-0.22); BASOPHILS % (AUTO) 1.1 % (0.0-2.0); EOSINOPHILS # (AUTO) 0.2 K/uL (0-0.4); HEMATOCRIT 39.1 % (36-48); HEMOGLOBIN 13.2 g/dL (12.0-16.0); LYMPHOCYTES # (AUTO) 1.9 K/uL (2.5-16.5); LYMPHOCYTES % (AUTO) 23.6 % (20.5-51.1); MEAN CORPUSCULAR HEMOGLOBIN 30 pg (27-31); MEAN CORPUSCULAR HGB CONC 34 g/dL (33-37); MEAN CORPUSCULAR VOLUME 88.1 fL (80-94); MONOCYTES # (AUTO) 0.5 K/uL (0.8-1.0); MONOCYTES % (AUTO) 6.2 % (1.7-9.3); NEUTROPHILS # (AUTO) 5.2 K/uL (1.8-7.7); NEUTROPHILS % (AUTO) 66.1 % (42.2-75.2); PLATELET COUNT (AUTO) 213 K/uL (140-450); RED BLOOD CELL COUNT(AUTO) 4.44 MIL/uL (4.20-5.40); RED CELL DISTRIBUTION WIDTH 13.8 % (11.6-13.7); WHITE BLOOD COUNT (AUTO) 7.9 K/uL (4.8-10.8)
[2023-06-24] MEDS ORDERED: IBUPROFEN 600 MG TAB PO ONE (07:30)
[2023-06-24 07:35] VITALS: BP 165/98; PULSE 82; RESP 15; TEMP 97.7
[2023-06-24 07:39] LABS: ALANINE AMINOTRANSFERASE 55 U/L (12-78); ALBUMIN 3.5 g/dL (3.4-5.0); ALKALINE PHOSPHATASE 105 U/L (50-136); ANION GAP 12.9 (8-16); ASPARTATE AMINOTRANSFERASE 53 U/L (15-37); CALCIUM 8.9 mg/dL (8.5-10.1); CHLORIDE 100 mmol/L (98-107); CREATININE 0.8 mg/dL (0.6-1.3); GFR ARICAN-AMERICAN 105 mL/min (>90); GFR NON ARICAN-AMERICAN 87 mL/min (>90); GLUCOSE 100 mg/dL (74-106); POTASSIUM 3.9 mmol/L (3.5-5.1); SODIUM SERUM 134 mmol/L (136-145); TOTAL BILIRUBIN 0.3 mg/dL (0.0-1.0); TOTAL PROTEIN, SERUM 7.3 g/dL (6.4-8.2); UREA NITROGEN, BLOOD 8 mg/dL (7-18)
[2023-06-24 10:42] VITALS: O2SAT 98
== END 2023-06-24 08:05 | disposition home or self-care (01) ==
LOC: MED 06:28
DX: R07.89 Other chest pain (principal); I10 Essential (primary) hypertension; Z79.899 Other long term (current) drug therapy; Z98.84 Bariatric surgery status; Z98.890 Other specified postprocedural states
CPT/HCPCS: 36415; 71045; 80053; 84484; 85025; 93005; 99285

== ENCOUNTER 2023-07-11 14:02 | Emergency (ER) | payer MEDICAID ==
[~2023-07-11] VITALS: Ht 160 cm; Wt 120.2 kg
[2023-07-11 15:18] VITALS: BP 145/109; PULSE 91; RESP 18; TEMP 97.8; O2SAT 97
== END 2023-07-11 18:01 | disposition left against medical advice (07) ==
LOC: MED 14:02
DX: R03.0 Elevated blood-pressure reading, without diagnosis of hypertension (principal); Z53.21 Procedure and treatment not carried out due to patient leaving prior to being seen by health care provider
CPT/HCPCS: 99281

== ENCOUNTER 2023-12-07 22:42 | Emergency (ER) | payer MEDICAID | END 2023-12-07 23:45 | disposition left against medical advice (07) | LOC: MED 22:42 | DX: R10.9 Unspecified abdominal pain (principal); Z53.21 Procedure and treatment not carried out due to patient leaving prior to being seen by health care provider ==